=== PATIENT | male | born 1975 | race Caucasian/White ===

== ENCOUNTER 2018-04-02 01:08 | Emergency (ER) | payer OTHER ==
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
[2018-04-02] MEDS ORDERED: Ketorolac 60 MG/2 ML SDV IM ONE (01:32)
[2018-04-02] MEDS ORDERED: HYDROmorphone 1 MG/ML Syringe IM ONE (01:32)
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
== END 2018-04-02 03:41 | disposition home or self-care (01) ==
LOC: MW.ED 01:08
DX: S42.024A Nondisplaced fracture of shaft of right clavicle, initial encounter for closed fracture (principal); S22.41XA Multiple fractures of ribs, right side, initial encounter for closed fracture; V19.3XXA Pedal cyclist (driver) (passenger) injured in unspecified nontraffic accident, initial encounter
CPT/HCPCS: 71101; 73000; 73020; 96372; 99283; J1170; J1885